=== PATIENT | male | born 2000 | race Caucasian/White ===

== ENCOUNTER → 2019-07-22 | Outpatient (REF) | payer OTHER | LOC: M SFHCLERA 15:32 | PROVIDERS: ATTEND Physician Assistant | DX: R50.9 Fever, unspecified (principal) ==

== ENCOUNTER → 2021-10-20 | Outpatient (CLI) | payer OTHER ==
[~2021-10-20] MED LIST: MELA10TA6 PO
== END ==
LOC: M RAD 16:44
PROVIDERS: ATTEND Otolaryngology
DX: J34.9 Unspecified disorder of nose and nasal sinuses (principal); H61.811 Exostosis of right external canal

== ENCOUNTER 2021-11-09 07:13 | Day surgery (SDC) | payer OTHER ==
[~2021-11-09] VITALS: Ht 167.6 cm; Wt 109.5 kg
[~2021-11-09 07:13] MED LIST changes: +LIDOCAINE 1% MDV 20ML VIAL SQ PRN; +LR 1,000 ML IV ONE
[2021-11-09] MEDS ORDERED: LIDOCAINE 2% 100MG/5ML SDV (FOR ANES.) As Ordered ONE (09:10)
[2021-11-09] MEDS ORDERED: ROCURONIUM BROMIDE 50 MG/5 ML VIAL As Ordered ONE (09:10)
[2021-11-09] MEDS ORDERED: propofoL 200 MG/20 ML VIAL As Ordered ONE (09:10)
[2021-11-09] MEDS ORDERED: MIDAZOLAM INJ 2MG/2ML VIAL (J2250 PER 1MG) As Ordered ONE (09:10)
[2021-11-09] MEDS ORDERED: fentaNYL 100 MCG/2 ML INJECTION (J3010) As Ordered ONE ×2 (09:10→10:11)
[2021-11-09] MEDS ORDERED: CIPRODEX OTIC SUSP 7.5ML As Ordered ONE (09:30)
[2021-11-09] MEDS ORDERED: LIDOCAINE 1% MDV 20ML VIAL As Ordered ONE (09:46)
[2021-11-09] MEDS ORDERED: dexameTHASONE 4 MG/ML 1ML VIAL (J1100 PER 1MG) As Ordered ONE (09:54)
[2021-11-09] MEDS ORDERED: ONDANSETRON 4MG/2ML VIAL As Ordered ONE ×2 (09:54→11:29)
[2021-11-09] MEDS ORDERED: ACETAMINOPHEN 1000MG 100ML IV BTL (OFIRMEV) (J0131 PER 10MG) As Ordered ONE (09:56)
[2021-11-09] MEDS ORDERED: SUGAMMADEX SODIUM 500 MG/5 ML VIAL (BRIDION) As Ordered ONE (09:56)
[2021-11-09] MEDS ORDERED: LIDOCAINE W/EPINEPHRINE 1% 20ML VIAL As Ordered ONE (10:06)
[2021-11-09] MEDS ORDERED: EPINEPHrine INJ 1 MG/ML 1ML AMP As Ordered ONE (10:17)
[2021-11-09] MEDS ORDERED: EPINEPHrine 1MG/ML INJ 30ML MD-VIAL As Ordered ONE (10:17)
[2021-11-09] MEDS ORDERED: BACITRACIN OINTMENT 30GM TUBE As Ordered ONE (10:34)
[2021-11-09] MEDS ORDERED: LR 1,000 ML IV SCH ×2 (11:35)
[2021-11-09] MEDS ORDERED: ONDANSETRON 4MG/2ML VIAL IV PRN ×2 (11:35)
[2021-11-09] MEDS ORDERED: NORCO, ANEXSIA 5/325MG TABLET (HYDROcodone/ACETAMINOPHEN) PO PRN (11:35)
[2021-11-09] MEDS ORDERED: fentaNYL 100 MCG/2 ML INJECTION (J3010) IV PRN (11:35)
[2021-11-09] MEDS ORDERED: oxyCODONE 5MG TAB PO PRN (11:35)
[2021-11-09 11:54] VITALS: BP 122/72
--- NOTE | 2021-11-09 16:45 | ROOPDOC ---
[facility] Report Of Operation Report of Operation DATE OF PROCEDURE: 11/09/21 PREPROCEDURE DIAGNOSES: Right ear canal osteoma. POSTPROCEDURE DIAGNOSES: Same. PROCEDURE PERFORMED: Removal of ear canal osteoma. SURGEON: MD Rodrick ASSURANCE ANALYST: Enmanuel, ANESTHESIA: General. ESTIMATED BLOOD LOSS: Approximately less than 5 mL. COMPLICATIONS: None. REMARKS: . FINDINGS: SPECIMENS REMOVED: Right ear canal ostia PROCEDURE NOTE: Saul is a 21-year-old who was seen in the office and diagnosed the above condition. Decision was made in consultation with the patient after explanation of the risks and benefits to undergo the above-named procedure. He was admitted through same-day surgery program taken to the operating room is ministered a general anesthetic via intravenous injection he was then intubated endotracheally. The right ear canal and auricle were prepped and draped in usual sterile fashion. The microscope was brought into position speculum is placed in the ear the ear canal skin was injected with 1% lidocaine with epinephrine. We then used a sickle knife to incise the skin over the osteoma. The round knife was used to remove the skin over the osteotome until we could see the root we then used a 4 mm osteotome to remove this. Once this was removed we could see an additional osteoma below this. Once again we incised the skin over the osteoma and elevated it with the round knife. We then used the osteotome to remove this in the similar fashion. Once this was completed the area of attachment to the anterior wall was identified. We used the cutting bur to remove the attachment down to the level of the canal. We then used a smooth candi bur to smooth this area over. Mucosa was laid back into position. Gelfoam was placed in the ear canal we placed bacitracin distally and a cotton ball in the conchal bowl. An eye pad was placed over the ear. Patient was allowed recover from anesthetic and taken to postanesthesia care in stable condition. There were no complications. DESCRIPTION OF PROCEDURE: . Rory Mensah MD Nov 09, 2021 16:45
== END 2021-11-09 13:12 | disposition home or self-care (01) ==
LOC: M SDC 07:13
PROVIDERS: ATTEND Otolaryngology
DX: D16.9 Benign neoplasm of bone and articular cartilage, unspecified (principal); M54.9 Dorsalgia, unspecified; R06.83 Snoring; J02.9 Acute pharyngitis, unspecified; F17.290 Nicotine dependence, other tobacco product, uncomplicated; Z79.899 Other long term (current) drug therapy
CPT/HCPCS: 69140; 69990; 88304; J0131; J1100; J2250; J2405; J3010

== ENCOUNTER → 2022-07-14 | Outpatient (CLI) | payer OTHER, SELFPAY ==
[~2022-07-14] MED LIST changes: -LIDOCAINE 1% MDV 20ML VIAL SQ PRN; -LR 1,000 ML IV ONE; +MELA10TA14 PO; -MELA10TA6 PO
== END ==
LOC: M RAD 11:42
DX: M79.672 Pain in left foot (principal); M25.532 Pain in left wrist